=== PATIENT | male | born 1975 | race Caucasian/White ===

== ENCOUNTER 2022-02-21 14:56 | Outpatient (CLI) | payer SELFPAY ==
--- NOTE | 2022-02-21 15:00 | USCV_ITS ---
Basilio Rodriguez Age: 46 Gender: M : 1975 Exam Date: 02/21/2022 15:19 Ordering Phys: Momo Davalos M.D ([email or web address]) Technologist: JORGE ALBERTO [place] [facility] [place]: stenosis on lt ica per lifescreen Risk Factors: hyperlipidemia, headaches. family history Previous Vascular Surgery: none Right Brachial BP: / Left Brachial BP: / Right Left Velocity (cm/s) Spectral Plaque Velocity (cm/s) Spectral Plaque Syst/Diast Broadening Syst/Diast Broadening 104.70/27.60 None None Prox CCA 120.20/ 33.10 None None 102.50/34.20 None None Mid CCA 93.70 / 25.40 None None 99.20/ 32.00 None Hetro Distal CCA 78.30 / 22.10 None Hetro 80.50/ 33.10 None Hetro Prox ICA 142.90/ 59.00 Mod Hetro 82.70/ 38.60 None None Mid ICA 213.10/ 88.50 Mod Hetro 104.70/51.80 None None Distal ICA 88.50 / 26.10 None None 124.60 None None ECA 94.80 None None 1.00 ICA/CCA 1.77 Antegrade Vertebral Antegrade 31.00/ 11.70 cm/s 48.60/ 15.80 cm/s Tri Subclavian Tri 95.50 82.20 FINDINGS Moderate to heavy soft plaque in the left bifurcation and proximal internal carotid artery. Color-flow turbulence and spectral broadening was noted in this region. Intimal thickening and minimal plaque in the right bifurcation and Delayed peaking, low velocity Doppler waveforms in the distal ICA. Antegrade flow in the vertebral arteries bilaterally Normal Doppler velocities in the external carotid, vertebral and subclavian arteries CONCLUSIONS Moderate to heavy soft plaque in the left bifurcation and proximal internal carotid artery with elevated Doppler velocities suggesting 50 to 69% stenosis. The abnormal Doppler waveforms in the distal ICA, suggesting hemodynamically significant proximal stenosis. Intimal thickening and minimal plaques at the right bifurcation, suggesting less than 50% stenosis No significant stenosis in the external carotid, vertebral and subclavian arteries, based on the above findings. Consider CTA to better evaluate the left internal carotid artery No similar previous studies are available for comparison Dr Randal Lorenz MD FACC (Electronically Signed) Final Date: 22 February 2022 19:06 S
== END 2022-02-21 14:57 | disposition home or self-care (01) ==
PROVIDERS: Visit Provider Internal Medicine
DX: I25.10 Atherosclerotic heart disease of native coronary artery without angina pectoris (principal); E78.5 Hyperlipidemia, unspecified; I65.23 Occlusion and stenosis of bilateral carotid arteries
CPT/HCPCS: 93880